=== PATIENT | female | born 1970 | race Caucasian/White ===

== ENCOUNTER 2025-10-19 07:21 | Emergency (ER) | payer OTHER, SELFPAY ==
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
[2025-10-19 07:24] VITALS: BP 130/85; PULSE 73; RESP 18; TEMP 36.2; O2SAT 100; BMI 27.5
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
[2025-10-19 10:10] VITALS: BP 118/77; PULSE 59; RESP 15; TEMP 36.5; O2SAT 99
== END 2025-10-19 11:12 | disposition home or self-care (01) ==
PROVIDERS: Emergency Provider Emergency Medicine; PCP Physician Assistant Medical
DX: M25.552 Pain in left hip (principal); M54.9 Dorsalgia, unspecified; R51.9 Headache, unspecified; V43.52XA Car driver injured in collision with other type car in traffic accident, initial encounter; Y93.9 Activity, unspecified; Y92.9 Unspecified place or not applicable; Y99.9 Unspecified external cause status
CPT/HCPCS: 70450; 72100; 73502; 99284

== ENCOUNTER → 2025-10-19 07:52 | Outpatient (BNV) | payer OTHER, SELFPAY | PROVIDERS: PCP Physician Assistant Medical; Visit Provider Radiology Diagnostic Radiology | DX: R51.9 Headache, unspecified (principal); M54.50 Low back pain, unspecified; M25.552 Pain in left hip; V89.2XXA Person injured in unspecified motor-vehicle accident, traffic, initial encounter | CPT/HCPCS: 70450; 72100; 73502 ==